=== PATIENT | female | born 1990 | race Caucasian/White ===

== ENCOUNTER 2020-03-05 10:50 | Outpatient (CLI) | payer OTHER ==
--- NOTE | 2020-03-05 11:21 | RAD ---
EXAM: XR Abdomen 2 View PROVIDED CLINICAL HISTORY: Epigastric pain COMPARISON: None FINDINGS: The abdominal bowel gas pattern is nonspecific. There is no evidence for pneumoperitoneum limitations due to incomplete inclusion of the right hemidiaphragm. IUD overlies the pelvis left of midline. No radiographically apparent urinary tract calculi. IMPRESSION: Nonspecific bowel gas pattern.
== END 2020-03-05 10:51 | disposition home or self-care (01) ==
LOC: BICRAD 10:50
PROVIDERS: ATTEND Internal Medicine Gastroenterology
DX: R10.13 Epigastric pain (principal); R10.33 Periumbilical pain
CPT/HCPCS: 74019